=== PATIENT | female | born 1990 | race Caucasian/White ===

== ENCOUNTER 2020-09-29 03:03 | Emergency (ER) | payer SELFPAY ==
[~2020-09-29] VITALS: Ht 165.1 cm; Wt 53.5 kg
--- NOTE | 2020-09-29 03:03 | NUR ---
LAC TO FOREHEAD S/P HITTING HEAD ON LEDGE. -KO, PT AAOX4, -SOB, NAD NOTED,VSS PENDING ER PROVIDER EVAL
--- NOTE | 2020-09-29 04:00 | NUR ---
PT NOTED TO HAVE 2 EPISODES OF EMESIS APPROX 200ML
[2020-09-29] MEDS ORDERED: LIDOCAINE 1%-EPI 1:100,000 20 ML VIAL ONE (04:14)
[2020-09-29] MEDS ORDERED: TDAP [DIPH/PERTUSSIS/TET] 0.5 ML VIAL IM ONE ×2 (05:48→06:00)
--- NOTE | 2020-09-29 05:50 | NUR ---
Patient discharged to home in stable condition. Written and verbal after care instructions given. Patient verbalizes understanding of instruction.
[2020-09-29 05:52] VITALS: BP 121/70
== END 2020-09-29 05:52 | disposition home or self-care (01) ==
LOC: ER 03:03
DX: S01.81XA Laceration without foreign body of other part of head, initial encounter (principal); R11.2 Nausea with vomiting, unspecified; F10.129 Alcohol abuse with intoxication, unspecified; W22.8XXA Striking against or struck by other objects, initial encounter; Y93.89 Activity, other specified; Y92.89 Other specified places as the place of occurrence of the external cause; Y99.8 Other external cause status; Y90.9 Presence of alcohol in blood, level not specified
CPT/HCPCS: 12013; 70450; 90471; 90715; 99284; J3490

== ENCOUNTER 2020-10-01 13:30 | Emergency (ER) | payer SELFPAY ==
[~2020-10-01] VITALS: Ht 170.2 cm; Wt 49.9 kg
[2020-10-01 13:59] VITALS: BP 120/76
--- NOTE | 2020-10-01 14:05 | NUR ---
The patient bibs for c/o forehead suture check. Denies pain. Will continue to monitor the patient.
--- NOTE | 2020-10-01 14:36 | NUR ---
Patient discharged to home in stable condition. Written and verbal after care instructions given. Patient verbalizes understanding of instruction.
== END 2020-10-01 14:36 | disposition home or self-care (01) ==
LOC: ER 13:30
DX: S01.81XD Laceration without foreign body of other part of head, subsequent encounter (principal); X58.XXXD Exposure to other specified factors, subsequent encounter

== ENCOUNTER 2020-10-04 09:45 | Emergency (ER) | payer SELFPAY ==
[~2020-10-04] VITALS: Ht 167.6 cm; Wt 51.7 kg
[2020-10-04 10:50] VITALS: BP 111/65
== END 2020-10-04 11:34 | disposition home or self-care (01) ==
LOC: ER 09:47
DX: S01.81XD Laceration without foreign body of other part of head, subsequent encounter (principal); X58.XXXD Exposure to other specified factors, subsequent encounter